=== PATIENT | female | born 1940 | race Caucasian/White ===

== ENCOUNTER 2017-03-16 13:31 | Outpatient (CLI) | payer MEDICARE ==
--- NOTE | 2017-03-16 14:02 | RAD ---
CHEST PA AND LATERAL: History: 76-year-old female with dyspnea. FINDINGS: Heart size is within normal limits. There are atherosclerotic changes of the aorta. Mild biapical ple ural thickening. No confluent pneumonia, overt edema, or pleural effusion. IMPRESSION: Mild chronic changes. No acute intrathoracic disease. POS: [facility]
== END 2017-03-16 13:32 | disposition home or self-care (01) ==
LOC: RAD 13:31
PROVIDERS: ATTEND Internal Medicine Pulmonary Disease
DX: R06.00 Dyspnea, unspecified (principal)
CPT/HCPCS: 71020

== ENCOUNTER 2017-04-03 20:30 | Outpatient (CLI) | payer MEDICARE, OTHER | END 2017-04-03 20:31 | disposition home or self-care (01) | LOC: SLEEPLAB 20:30 | PROVIDERS: ATTEND Internal Medicine Pulmonary Disease | DX: G47.33 Obstructive sleep apnea (adult) (pediatric) (principal); F51.9 Sleep disorder not due to a substance or known physiological condition, unspecified; G47.10 Hypersomnia, unspecified; R06.83 Snoring; E66.9 Obesity, unspecified; F41.9 Anxiety disorder, unspecified; G47.00 Insomnia, unspecified | CPT/HCPCS: 95811 ==

== ENCOUNTER 2017-07-08 10:24 | Outpatient (CLI) | payer OTHER | END 2017-07-08 10:25 | disposition home or self-care (01) | LOC: DTY/OP 10:24 | PROVIDERS: ATTEND Internal Medicine Cardiovascular Disease | DX: E66.9 Obesity, unspecified (principal) | CPT/HCPCS: 97802 ==

== ENCOUNTER 2017-10-07 09:58 | Outpatient (CLI) | payer MEDICARE, OTHER | END 2017-10-07 09:59 | disposition home or self-care (01) | LOC: BICMAMMO 09:58 | PROVIDERS: ATTEND Internal Medicine | DX: Z12.31 Encounter for screening mammogram for malignant neoplasm of breast (principal); Z80.3 Family history of malignant neoplasm of breast | CPT/HCPCS: 77063; 77067 ==

== ENCOUNTER 2017-11-30 09:10 | Outpatient (CLI) | payer MEDICARE, OTHER | END 2017-11-30 09:11 | disposition home or self-care (01) | LOC: BICRAD 09:10 | PROVIDERS: ATTEND Internal Medicine | DX: M25.552 Pain in left hip (principal); M79.641 Pain in right hand; M79.642 Pain in left hand ==

== ENCOUNTER 2018-10-25 08:44 | Outpatient (CLI) | payer MEDICARE, OTHER ==
--- NOTE | 2018-10-25 10:45 | MMO ---
Bilateral MAMMO Bilat Screen [facility]. CLINICAL HISTORY: Patient is 77 years old and is seen for screening. The patient has the following family history of breast cancer: sister, at age 77. The patient has no personal history of cancer. VIEWS: The views performed were: bilateral craniocaudal with tomosynthesis and bilateral mediolateral oblique with tomosynthesis. FILMS COMPARED: The present examination has been compared to prior imaging studies performed at [facility] on 08/12/2015, 08/25/2016, 09/03/2016 and 10/07/2017. MAMMOGRAM FINDINGS: The breasts are heterogeneously dense, which could obscure a lesion on mammography. There are stable benign appearing calcifications seen in both breasts. Benign appearing nodular densities are again seen in each breast. There are no suspicious masses, suspicious calcifications, or new areas of architectural distortion. IMPRESSION: THERE IS NO MAMMOGRAPHIC EVIDENCE OF MALIGNANCY. A ROUTINE FOLLOW-UP MAMMOGRAM IN 1 YEAR IS RECOMMENDED. THE RESULTS OF THIS EXAM WERE SENT TO THE PATIENT. ACR BI-RADS Category 2 - Benign finding MAMMOGRAPHY NOTE: 1. A negative mammogram report should not delay a biopsy if a dominant of clinically suspicious mass is present. 2. Approximately 10% to 15% of breast cancers are not detected by mammography. 3. Adenosis and dense breasts may obscure an underlying neoplasm. Reported by: ERI NAVARRETE MD Electonically Signed: [id number]
== END 2018-10-25 08:45 | disposition home or self-care (01) ==
LOC: BICMAMMO 08:44
PROVIDERS: ATTEND Internal Medicine
DX: Z12.31 Encounter for screening mammogram for malignant neoplasm of breast (principal); N64.59 Other signs and symptoms in breast; Z80.3 Family history of malignant neoplasm of breast
CPT/HCPCS: 77063; 77067

== ENCOUNTER 2018-11-03 08:54 | Outpatient (CLI) | payer MEDICARE, OTHER ==
--- NOTE | 2018-11-03 12:12 | MRI ---
MRI CERVICAL SPINE NONCONTRAST: Date: 11/12/18 HISTORY: 77-year-old female ICD-10:M47.12 cervical spondylosis with myelopathy. Cervicalgia. COMPARISON: None. FINDINGS: Vertebral body heights are maintained. Mild disc space narrowing at C5-6. No high grade disc space na rrowing at any level. Cervical spinal cord is normal in size and signal. 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 This is exacerbated by cervical spondylosis as shailesh cribed below. No major bone marrow signal abnormality. Unremarkable perivertebral spaces. C1-2: No significant additional findings. C2-3: Moderate central stenosis, almost entirely due to developmentally short pedicles. Severe right facet DJD. Moderate to severe left facet DJD. Bilateral uncinate process osteophytes encroach upon n eural foramina. Moderate to severe right neural foraminal stenosis. Moderate left neural foraminal st enosis. C3-4: Moderate to severe central spinal canal stenosis. Uncinate process osteophytes. Severe bilater al neural foraminal stenosis, left worse than right. Severe bilateral facet DJD. Mild Grade I anterol isthesis of C3 on C4 due to the facet DJD. C4-5: Severe bilateral facet DJD, right worse than left. This results in slight Grade I anterolisthe sis of C4 on C5. Moderate to severe central spinal canal stenosis. Moderate to severe right neural fo raminal stenosis. Mild left neural foraminal stenosis. C5-6: Severe central spinal canal stenosis. Bilateral uncinate process osteophytes. Moderate to emanuel re right neural foraminal stenosis. Moderate left neural foraminal stenosis. Severe bilateral facet D POORNIMA. C6-7: Severe bilateral facet DJD. Ligamentum flavum thickening indents the dorsal surface of the spi nal cord. Broad based disc-osteophytic bar complex indents the ventral surface of the spinal cord. Se corrina central spinal canal stenosis. Minimal Grade I anterolisthesis of C6 on C7. Moderate to severe b ilateral neural foraminal stenosis, left worse than right. C7-T1: Ligamentum flavum thickening. Moderate to severe central spinal canal stenosis. Mild bilatera l neural foraminal stenosis. Moderate bilateral facet DJD, right worse than left. IMPRESSION: 1. Cervical spondylosis consisting of multilevel severe bilateral facet osteoarthrosis. 2. Developmentally small caliber spinal canal exacerbated by cervical spondylosis. 3. Multilevel high grade central spinal canal stenosis (including severe) and high grade bilateral n eural foraminal stenosis (including severe). POS: [facility]
--- NOTE | 2018-11-03 14:05 | MRI ---
MRI LUMBAR SPINE WITH AND WITHOUT CONTRAST: Date: 11/03/18 HISTORY: Lumbar spondylosis, with myelopathy. Left lower extremity numbness. COMPARISON: None. FINDINGS: Appropriate T1 marrow signal intensity of the lumbar vertebra. Vertebral body height is maintained. N o fracture. Type III Modic change involving the right aspect of the L4-L5 disc space. Appropriate signal intensity of the visualized paraspinal muscles. T2 hyperintensity in the left renal pelvis measuring 0.6 cm likely representing a small cyst. There a re two other cysts in the right kidney measuring 1.5 x 1.9 cm and 1.3 x 1.1 cm. Conus medullaris terminates at the far aspect of L2. There is no significant STIR hyperintensity to suggest vertebral body edema or ligamentous injury. Postcontrast images do not demonstrate any abnormal enhancement of the vertebral bodies. No abnormal enhancement in the thecal sac, including the cauda equina and conus medullaris. T11-T12: Mild loss of disc space height. There is mild mass effect upon the thecal sac secondary to disc material. Mild central canal stenosis. T12-L1: No significant central canal stenosis or neural foraminal narrowing. L1-L2: Adequate disc hydration. No significant central canal stenosis. Mild ligamentum flavum thicke mansi and facet hypertrophy. Bilaterally, neural foramina are patent. L2-L3: Desiccation with moderate loss of disc space height. Broad based disc bulge, ligamentum flavu m thickening, and facet hypertrophy result in moderate central canal stenosis. Moderate bilateral keo ral foraminal narrowing. L3-L4: Desiccation with mild loss of disc space height. Broad based disc bulge, ligamentum flavum th ickening, and facet hypertrophy result in moderate central canal stenosis. Mild bilateral neural fora erick narrowing. L4-L5: Desiccation with moderate loss of disc space height. Broad based disc bulge, ligamentum flavu m thickening, and facet hypertrophy result in moderate to severe central canal stenosis. Mild to mode rate right and mild left foraminal narrowing. L5-S1: Desiccation with mild loss of disc space height. Broad based disc bulge, ligamentum flavum th ickening, and facet hypertrophy do not cause any significant stenosis of the thecal sac. Disc materia l encroaches upon but does not obscure either traversing S1 nerve root. There is bilateral facet hype rtrophy with moderate bilateral foraminal narrowing. IMPRESSION: Degenerative changes of the lumbar spine as described above. POS: [facility]
== END 2018-11-03 08:55 | disposition home or self-care (01) ==
LOC: BICMRI 08:54
PROVIDERS: ATTEND Neurological Surgery
DX: M47.16 Other spondylosis with myelopathy, lumbar region (principal); M47.12 Other spondylosis with myelopathy, cervical region; M47.817 Spondylosis without myelopathy or radiculopathy, lumbosacral region; M48.02 Spinal stenosis, cervical region
CPT/HCPCS: 72141; 72158; 82565

== ENCOUNTER 2019-01-09 11:57 | Outpatient (CLI) | payer MEDICARE, OTHER ==
[2019-01-09] MEDS ORDERED: Gadobenate Dimeglumine 529 MG/1 ML (20ML VIAL) ONE (13:50)
--- NOTE | 2019-01-09 15:06 | MRI ---
MRI OF BRAIN WITH AND WITHOUT CONTRAST: INDICATION: Paresthesias of skin. FINDINGS: The ventricles have normal size and position. There is no evidence of restricted diffusion. There i s no evidence of mass or edema. There is no significant white matter abnormality. No abnormal enhancement identified. The intracranial internal carotid arteries, cerebral arteries, and basilar arteries show expected matthew w voids. Paranasal sinuses appear clear. IMPRESSION: Unremarkable MRI of brain. POS: [facility]
== END 2019-01-09 11:58 | disposition home or self-care (01) ==
LOC: BICMRI 11:57
PROVIDERS: ATTEND Psychiatry & Neurology Neurology
DX: R20.2 Paresthesia of skin (principal)
CPT/HCPCS: 70553; 82565; A9577